=== PATIENT | male | born 1960 | race Caucasian/White ===

== ENCOUNTER 2022-03-30 15:21 | Observation (INO) ==
[2022-03-30] MEDS ORDERED: DOCUSATE SODIUM 100 MG CAPSULE PO PRN (17:45)
[2022-03-30] MEDS ORDERED: ONDANSETRON 4 MG/2 ML VIAL IV PRN (17:45)
[2022-03-30] MEDS ORDERED: ACETAMINOPHEN 325 MG TABLET PO PRN (17:45)
[2022-03-30] MEDS ORDERED: hydrALAZINE 20 MG/1 ML VIAL IV PRN (17:45)
[2022-03-30] MEDS ORDERED: HEPARIN 5,000 UNIT/1 ML VIAL SUBCUT SCH (18:00)
[2022-03-30] MEDS ORDERED: LORazepam 2 MG/1 ML VIAL IV PRN (18:03)
[2022-03-30 18:36] LABS: Basophils % 0.3 % (0.0-0.8); Hematocrit 35.6 VOL% (42.0-52.0); Hemoglobin 12.4 GM/DL (14.0-18.0); Immature Granulocytes % 0.4 %; Immature Granulocytes Absolute 0.04 #; Lymphocytes # 0.8 10*3/uL (1.4-4.0); Lymphocytes % 8.4 % (21.2-54.2); Mean Corpuscular HGB Conc 34.8 GM/DL (32-36); Mean Corpuscular Volume 97.8 FL (87-102); Mean Platelet Volume 10.5 FL (9.6-12.0); Monocytes # 1.2 10*3/uL (0.11-0.8); Monocytes % 12.1 % (1.7-12.7); Neutrophils % 78.8 % (38.7-73.9); Platelet Count 269 T/CUMM (130-400); Red Blood Count 3.64 MC/CUMM (3.8-5.5); Red Cell Distribution Width 11.4 % (9.3-17.3); White Blood Count 9.9 T/CUMM (4-12)
[2022-03-30 18:58] LABS: Albumin 3.3 G/DL (3.4-5.0); Bilirubin,Total 0.5 MG/DL (0.20-1.00); Calcium 9.5 MG/DL (8.5-10.1); Total Protein 7.9 G/DL (6.4-8.2)
[2022-03-30 19:01] LABS: Folate > 24.00 NG/ML (5.38-24.0); Vitamin B12 > 2000 PG/ML (211-911)
[2022-03-30] MEDS: LACTATED RINGERS 1,000 ML IV SCH (19:05)
[2022-03-30 19:09] LABS: Thyroid Stimulating Hormone 0.751 uIU/ml (0.358-3.74)
[2022-03-30 19:33] LABS: Bilirubin,Urine Negative (Negative); Blood, Urine Small mg/dL (Negative); Glucose,Urine (UA) Negative (Negative); Ketones,Urine Negative (Negative); Mucus,Urine Occasional /LPF (Occasional); Nitrite,Urine Negative (Negative); Protein,Urine Negative (Negative); RBC,Urine 4 /HPF (0-4); Urine Appearance Clear (Clear); Urine Color Yellow (Yellow); Urine Urobilinogen 0.2 eU/dL (<2.0); Urine pH 5.5 (4.5-8.0)
[2022-03-30] MEDS ORDERED: cefTRIAXone 1,000 MG in SODIUM CHLORIDE 0.9% 100 ML IV SCH (21:00)
[2022-03-31] MEDS: LACTATED RINGERS 1,000 ML IV SCH (03:00)
[2022-03-31 05:04] LABS: Basophils % 0.5 % (0.0-0.8); Eosinophils # 0.2 10*3/uL (0.0-0.87); Eosinophils % 2.6 % (0.00-10.9); Hematocrit 32.3 VOL% (42.0-52.0); Hemoglobin 11.2 GM/DL (14.0-18.0); Immature Granulocytes % 0.5 %; Immature Granulocytes Absolute 0.03 #; Lymphocytes # 1.1 10*3/uL (1.4-4.0); Lymphocytes % 18.9 % (21.2-54.2); Mean Corpuscular HGB Conc 34.7 GM/DL (32-36); Mean Corpuscular Volume 99.1 FL (87-102); Mean Platelet Volume 10.7 FL (9.6-12.0); Monocytes # 1.1 10*3/uL (0.11-0.8); Monocytes % 19.9 % (1.7-12.7); Neutrophils % 57.6 % (38.7-73.9); Platelet Count 261 T/CUMM (130-400); Red Blood Count 3.26 MC/CUMM (3.8-5.5); Red Cell Distribution Width 11.5 % (9.3-17.3); White Blood Count 5.7 T/CUMM (4-12)
[2022-03-31 05:26] LABS: Eosinophils 3 % (0-10); Lymphocytes 19 % (20-55); Total Cells Counted 100
[2022-03-31 05:27] LABS: Microcytosis Slight; Platelet Estimate Normal
[2022-03-31 05:29] LABS: Osmolality,Calculated 291.7 MOS/KG (273-304); Potassium 3.9 MMOL/L (3.5-5.1)
[2022-03-31 08:46] VITALS: BP 114/69
[2022-03-31] MEDS ORDERED: FOLIC ACID 1 MG TABLET PO SCH (09:00)
[2022-03-31] MEDS ORDERED: METOPROLOL SUCCINATE XL 50 MG TABLET PO SCH (09:00)
[2022-03-31] MEDS ORDERED: PANTOPRAZOLE 40 MG TABLET PO SCH (09:00)
[2022-03-31] MEDS ORDERED: MULTIVITAMIN (CENTRUM) TABLET PO SCH (09:00)
[2022-03-31] MEDS ORDERED: THIAMINE 100 MG TABLET PO SCH (09:00)
[2022-03-31] MEDS ORDERED: amLODIPine 10 MG TABLET PO SCH (09:00)
[2022-03-31] MEDS ORDERED: DIGOXIN 0.25 MG TABLET PO SCH (13:00)
== END 2022-03-31 09:55 | disposition home or self-care (01) ==
LOC: N.3E → SUATTDRO 16:53
PROVIDERS: ADMIT Internal Medicine; ATTEND Internal Medicine